=== PATIENT | male | born 1970 | race Hispanic/Latino ===

== ENCOUNTER 2019-10-25 19:55 | Emergency (ER) | payer OTHER, SELFPAY ==
[2019-10-25 20:01] VITALS: BP 135/77; PULSE 111; RESP 18; TEMP 36.6; O2SAT 99
[2019-10-25] MEDS: LORAZEPAM 1 MG TABLET PO (21:12)
[2019-10-25] MEDS: DIAZEPAM 5 MG TABLET PO (22:03)
--- NOTE | 2019-10-25 22:34 | ED.GENADULT ---
HPI - General Adult General Chief complaint: Anxiety Stated complaint: edibles, anxiety Time Seen by Provider: 10/25/19 20:20 Source: patient Mode of arrival: ambulatory Limitations: no limitations History of Present Illness HPI narrative: Patient is a 49-year-old man who presents with acute anxiety after consuming edible marijuana patient notes that he had not done this before and feels acutely anxious on arrival denies any recent illness sick contacts vomiting diarrhea chest pain or shortness of breath. Related Data Home Medications Medication Instructions Recorded Confirmed metformin 1,000 mg PO DAILY 10/25/19 pravastatin 20 mg PO DAILY 10/25/19 Allergies Allergy/AdvReac Type Severity Reaction Status Date / Time No Known Allergies Allergy Verified 10/25/19 20:05 Review of Systems Review of Systems: All systems reviewed & are unremarkable except as noted in HPI and below PMFSH Social History Social History (Updated 10/25/19 @ 22:35 by Chris Paintre PA-C) Smoking status: Current every day smoker Exam Narrative: Exam Narrative: GENERAL: Well-appearing, well-nourished, and in no acute distress. HEAD: Normocephalic, atraumatic. EYES: PERRLA and EOMI. ENT: Nares clear, no rhinorrhea or epistaxis. Mucous membranes moist. CHEST: Clear to auscultation. No respiratory distress. No wheezes rales or rhonchi HEART: Regular rate and rhythm. No murmur heard. EXTREMITIES: Normal range of motion. No edema. SKIN: Warm, dry, no rash. NEURO: No focal deficits. Alert and oriented x3. PSYCH: Normal mood and affect. Course Course Emergency Course: Patient in the room in no distress aware of case findings treatment plan and diagnosis Vital Signs Vital signs: Vital Signs Temperature 97.9 F 10/25/19 20:01 Pulse Rate 111 H 10/25/19 20:01 Respiratory Rate 18 10/25/19 20:01 Blood Pressure 135/77 10/25/19 20:01 Pulse Oximetry 99 10/25/19 20:01 Temperature 97.9 F 10/25/19 20:01 Pulse Rate 111 H 10/25/19 20:01 Respiratory Rate 18 10/25/19 20:01 Blood Pressure 135/77 10/25/19 20:01 Pulse Oximetry 99 10/25/19 20:01 Medical Decision Making MDM Narrative Medical decision making narrative: Patient feeling much better at this time will be discharged home Vital Signs Vital Signs: Vital Signs Temperature 97.9 F 10/25/19 20:01 Pulse Rate 111 H 10/25/19 20:01 Respiratory Rate 18 10/25/19 20:01 Blood Pressure 135/77 10/25/19 20:01 Pulse Oximetry 99 10/25/19 20:01 Temperature 97.9 F 10/25/19 20:01 Pulse Rate 111 H 10/25/19 20:01 Respiratory Rate 18 10/25/19 20:01 Blood Pressure 135/77 10/25/19 20:01 Pulse Oximetry 99 10/25/19 20:01 Discharge Plan Discharge Clinical Impression: Acute anxiety Patient Disposition: Home, Self-Care Condition: Stable Instructions: Antibiotic Form, Anxiety (ED) Additional Instructions: Follow up with your primary care doctor in 5-7 days for re-evaluation. Go to ER for worsening pain, vision changes, nausea/vomiting, fever/chills, weakness, chest pain, shortness of breath, numbness/tingling, slurred speech, difficulty walking, change in mental status etc. or any other concerns. Take any prescribed medications as directed. Prescriptions: No Action metformin 1,000 mg Tablet 1,000 mg PO DAILY RF: 0 pravastatin 20 mg Tablet 20 mg PO DAILY RF: 0 Follow-up/Referrals: PHYSICIAN NOT ON STAFF,NONSTAFF [Primary Care Provider] -
[2019-10-25 22:44] VITALS: BP 132/70; PULSE 88; RESP 18; O2SAT 98
== END 2019-10-25 22:46 | disposition home or self-care (01) ==
PROVIDERS: Emergency Provider Emergency Medicine
DX: F41.9 Anxiety disorder, unspecified (principal); F17.200 Nicotine dependence, unspecified, uncomplicated
CPT/HCPCS: 99283; A9270